=== PATIENT | female | born 1935 | race Caucasian/White ===

== ENCOUNTER → 2018-12-21 | Outpatient (REF) | payer MEDICARE ==
[~2018-12-21] MED LIST: COUMADIN4 MG PO; COUMADIN5 MG PO; COUMADIN6 MG PO; COUMADIN7.5 MG PO; KEFLEX250 MG PO; LIPITOR10 MG PO; LORTAB 10 PO; MULTIVITAMI9 PO; MYCOLOG30 GM EX; PROZAC20 MG PO
[2018-12-21 15:18] LABS: INTERNATIONAL NORMALIZED RATIO 2.2 RATIO (0.7-1.3); PROTHROMBIN TIME 22.8 SECONDS (9.0-12.5)
== END | disposition home or self-care (01) ==
LOC: LAB 14:42
PROVIDERS: ATTEND Family Medicine
DX: I82.409 Acute embolism and thrombosis of unspecified deep veins of unspecified lower extremity (principal)